=== PATIENT | female | born 1960 | race Caucasian/White ===

== ENCOUNTER → 2017-02-07 | Outpatient (CLI) | payer OTHER | LOC: WI 09:11 | PROVIDERS: ATTEND Specialist | DX: C50.212 Malignant neoplasm of upper-inner quadrant of left female breast (principal) | CPT/HCPCS: 77061; G0206 ==

== ENCOUNTER → 2017-02-10 | Outpatient (CLI) | payer OTHER | LOC: WI 13:25 | PROVIDERS: ATTEND Specialist | DX: Z12.31 Encounter for screening mammogram for malignant neoplasm of breast (principal); C50.212 Malignant neoplasm of upper-inner quadrant of left female breast | CPT/HCPCS: 77063; G0202 ==

== ENCOUNTER 2017-05-01 13:04 | Emergency (ER) | payer OTHER ==
[2017-05-01] MEDS ORDERED: ASPIRIN 81 MG TABLET, CHEWABLE PO ONE (14:26)
[2017-05-01] MEDS ORDERED: PROMETHAZINE HCL 25 MG TABLET PO ONE (14:27)
[2017-05-01] MEDS ORDERED: MORPHINE SULFATE 10 MG/ML INJ IV ONE ×2 (14:28→15:28)
--- NOTE | 2017-05-01 14:33 | ER Document Report ---
ED Medical Screen (RME) - General Chief Complaint: Shoulder Pain Stated Complaint: SHOULDER PAIN Time Seen by Provider: 05/01/17 14:15 Notes: 56 yo female with hx/o left breast cancer, HTN c/o acute onset of burning pain to left shoulder into left neck and left arm since last PM. Pt has shortness of breath, but reports that is not new. she has had some shortness of breath since having 35 rounds of radiation. Pt had normal heart cath last year at [facility]. Pt tearful, very uncomfortable. Hypertensive TRAVEL OUTSIDE OF THE [place] IN LAST 30 DAYS: No - Related Data Allergies/Adverse Reactions: codeine [Codeine] Allergy (Unknown, Verified 05/01/17 13:17) Penicillins Allergy (Unknown, Verified 05/01/17 13:17) Iodinated Contrast- Oral and IV Dye [IV Dye, Iodine Containing] Allergy ( Verified 05/01/17 13:17) Past Medical History - Social History Chew tobacco use (# tins/day): No Frequency of alcohol use: None - Past Medical History Cardiac Medical History: Reports: Hx Hypertension Neurological Medical History: Reports: Hx Migraine Renal/ Medical History: Denies: Hx Peritoneal Dialysis Malignancy Medical History: Reports: Hx Breast Cancer Psychiatric Medical History: Reports: Hx Depression Past Surgical History: Reports: Hx Breast Surgery - L Lumpectomy, Hx Section, Hx Hysterectomy, Hx Oral Surgery - [place] tooth removal, Hx Orthopedic Surgery - Right hand, Hx Tonsillectomy - Immunizations Hx Diphtheria, Pertussis, Tetanus Vaccination: Yes Physical Exam - Vital signs Vitals: Temp Pulse Resp BP Pulse Ox 98.7 F 95 20 148/101 H 97 05/01/17 13:17 05/01/17 13:17 05/01/17 13:17 05/01/17 13:17 05/01/17 13:17 Course - Vital Signs Vital signs: Temp Pulse Resp BP Pulse Ox 98.7 F 95 20 148/101 H 97 05/01/17 13:17 05/01/17 13:17 05/01/17 13:17 05/01/17 13:17 05/01/17 13:17
[2017-05-01] MEDS ORDERED: METHOCARBAMOL INJ/PF 1000 MG/10 ML SDV IV ONE (14:49)
--- NOTE | 2017-05-01 14:49 | ER Document Report ---
ED General - General Mode of Arrival: Wheelchair Information source: Patient TRAVEL OUTSIDE OF THE [place] IN LAST 30 DAYS: No <JOSE E HOGUE - Last Filed: 05/01/17 15:23> <BRITTNI ESPINOSA - Last Filed: 05/01/17 16:59> - General Chief Complaint: Shoulder Pain Stated Complaint: SHOULDER PAIN Time Seen by Provider: 05/01/17 14:15 Notes: Patient is a 56 year old female presenting to the ED for pain in her left shoulder, neck and arm. Patient's symptoms were onset yesterday morning. Patient denies any injury to her left arm. Patient states she was getting ready for her grandchildren to visit but states she hired someone to clean the house. After the patient received morphine she and her do recall the patient doing some heavy lifting several days ago in preparation for the grandchildren. Patient states her pain is burning and goes into her arm pit as well. Patient states she has had this pain before but it was not as intense and was manageable with ibuprofen. Patient has a history of left breast cancer. Patient has had 35 rounds of radiation. Patient has some shortness of breath ever since getting radiation and she states it occurs with activity; patient states her dyspnea is old and there is nothing new about it. Patient had a normal cardiac catheterization last year at [facility]. (JOSE E HOGUE) - Related Data Allergies/Adverse Reactions: codeine [Codeine] Allergy (Unknown, Verified 05/01/17 13:17) Penicillins Allergy (Unknown, Verified 05/01/17 13:17) Iodinated Contrast- Oral and IV Dye [IV Dye, Iodine Containing] Allergy ( Verified 05/01/17 13:17) Past Medical History - General Information source: Patient - Social History Smoking Status: Former Smoker Cigarette use (# per day): No Chew tobacco use (# tins/day): No Frequency of alcohol use: None Family History: None Patient has suicidal ideation: No Patient has homicidal ideation: No - Past Medical History Cardiac Medical History: Reports: Hx Hypertension Neurological Medical History: Reports: Hx Migraine Malignancy Medical History: Reports: Hx Breast Cancer - left Psychiatric Medical History: Reports: Hx Depression Past Surgical History: Reports: Hx Breast Surgery - L Lumpectomy, Hx Section, Hx Hysterectomy, Hx Oral Surgery - [place] tooth removal, Hx Orthopedic Surgery - Right hand, Hx Tonsillectomy - Immunizations Hx Diphtheria, Pertussis, Tetanus Vaccination: Yes <JOSE E HOGUE - Last Filed: 05/01/17 15:23> Review of Systems - Review of Systems Constitutional: No symptoms reported EENT: No symptoms reported Cardiovascular: No symptoms reported, Dyspnea - with activity; old symptom since starting chemotherapy Respiratory: No symptoms reported Gastrointestinal: No symptoms reported Genitourinary: No symptoms reported Female Genitourinary: No symptoms reported Musculoskeletal: See HPI Skin: No symptoms reported Hematologic/Lymphatic: No symptoms reported Neurological/Psychological: No symptoms reported -: Yes All other systems reviewed and negative <JOSE E HOGUE - Last Filed: 05/01/17 15:23> Physical Exam - Vital signs Interpretation: Hypertensive <JOSE E OHGUE - Last Filed: 05/01/17 15:23> <BRITTNI ESPINOSA - Last Filed: 05/01/17 16:59> - Vital signs Vitals: Temp Pulse Resp BP Pulse Ox 98.7 F 95 20 148/101 H 97 05/01/17 13:17 05/01/17 13:17 05/01/17 13:17 05/01/17 13:17 05/01/17 13:17 - Notes Notes: GENERAL: Alert, interacts well, appears uncomfortable. Mild distress. HEAD: Normocephalic, atraumatic. EYES: Appear normal. Pupils equal, round, and reactive to light. ENT: Moist mucus membranes, tongue midline. NECK: Full range of motion. Supple. Trachea midline. LUNGS: Clear to auscultation bilaterally, no wheezes, rales, or rhonchi. No respiratory distress. HEART: Regular rate and rhythm. No murmurs, gallops, or rubs. ABDOMEN: Soft, non-tender. Non-distended. Normal bowel sounds. EXTREMITIES: Moves all 4 extremities spontaneously. Pain and tenderness to palpate the medial scapula musculature, lateral ribs, axillary region and a exquisitely tender long T3, T4, and T5 is exquisitely tender with palpation. Patient is not tender over the trapezius musculature. Patient's tenderness expands over several dermatomes. There is no sensitivity to the skin and no sign of rash or lesions over these areas. NEUROLOGICAL: Alert and oriented x3. Normal speech. No focal neurological deficits. GSC 15. PSYCH: Normal affect, normal mood. SKIN: Warm, dry, normal turgor. No rashes or lesions present. (JOSE E HOGUE) Course - Laboratory Result Diagrams: 05/01/17 14:51 05/01/17 14:51 <JOSE E HOGUE - Last Filed: 05/01/17 15:23> - Laboratory Result Diagrams: 05/01/17 14:51 05/01/17 14:51 - EKG Interpretation by Me EKG shows normal: Sinus rhythm, [place], Intervals, QRS Complexes, ST-T Waves Rate: Normal - 81 Rhythm: NSR When compared to previous EKG there are: No significant change <BRITTNI ESPINOSA - Last Filed: 05/01/17 16:59> - Re-evaluation Re-evalutation: 05/01/17 16:49 Patient states she is feeling much better at this time. Workup is essentially negative other than a reproducible muscular left chest and scapular pain. (BRITTNI ESPINOSA) - Vital Signs Vital signs: Temp Pulse Resp BP Pulse Ox 98.7 F 95 20 148/101 H 97 05/01/17 13:17 05/01/17 13:17 05/01/17 13:17 05/01/17 13:17 05/01/17 13:17 - Laboratory Laboratory results interpreted by me: 05/01/17 14:51 Chloride 108 H ALT 59 H Discharge <JOSE E HOGUE - Last Filed: 05/01/17 15:23> <BRITTNI ESPINOSA - Last Filed: 05/01/17 16:59> - Discharge Clinical Impression: Rib pain on left side Muscle strain of left scapular region Qualifiers: Encounter type: initial encounter Qualified Code(s): S46.912A - Strain of unspecified muscle, fascia and tendon at shoulder and upper arm level, left arm , initial encounter Condition: Stable Disposition: HOME, SELF-CARE Additional Instructions: Muscle Strain: You have PROBABLY strained the left rib and scapular muscles. This often occurs with strenuous exertion, or during an injury that suddenly stretches the muscle. The seriousness of a strain varies. Some strains heal within days, others cause problems for months. X-rays cannot show a muscle strain. X-rays are taken only if symptoms suggest that a fracture could be present. The usual treatment of a muscle strain is rest and ice packs. Sometimes, a sling, splint, or crutches may be necessary to rest the muscle. The muscle can be used again once pain subsides. Severe strains require a special exercise and stretching program to prevent permanent stiffness and disability. Your doctor will advise you if this will be necessary. Call the doctor immediately if pain or swelling becomes severe, or if numbness or discoloration develop. TAKE THE MEDICATIONS PRESCRIBED. REST. MOIST HEAT. FOLLOW UP WITH YOUR DOCTOR IF NOT IMPROVING. RETURN TO THE EMERGENCY ROOM IF ANY NEW OR WORSENING SYMPTOMS. Prescriptions: Cyclobenzaprine HCl [Flexeril 5 mg Tablet] 5 mg PO TID PRN #15 tablet PRN Reason: Oxycodone HCl/Acetaminophen [Percocet 5-325 mg Tablet] 1 - 2 tab PO ASDIR PRN # 15 tablet PRN Reason: Referrals: MARIA ISABEL DE LA TORRE, SONOSCOPE OPERATOR [Primary Care Provider] - Follow up as needed Scribe Attestation: 05/01/17 16:58 I personally performed the services described in the documentation, reviewed and edited the documentation which was dictated to the scribe in my presence, and it accurately records my words and actions. (BRITTNI ESPINOSA) Scribe Documentation - Scribe Written by Nancy:: Nancy Jarvis, 05/01/2017 15:33 acting as scribe for :: Jessika <JOSE E HOGUE - Last Filed: 05/01/17 15:23>
[2017-05-01 15:11] LABS: ABSOLUTE BASOPHILS # (AUTO) 0.1 10^3/uL (0.0-0.2); ABSOLUTE EOSINOPHILS # (AUTO) 0.2 10^3/uL (0.0-0.6); ABSOLUTE LYMPHOCYTES (AUTO) 2.4 10^3/uL (0.5-4.7); ABSOLUTE MONOCYTES (AUTO) 0.5 10^3/uL (0.1-1.4); BASOPHILS % (AUTO) 0.8 % (0-2); EOSINOPHILS % (AUTO) 2.2 % (0-6); HEMATOCRIT 40.1 % (36.0-47.0); HEMOGLOBIN 14.2 g/dL (12.0-15.5); HGB HCT DIFFERENCE 2.5; LYMPHOCYTES % (AUTO) 29.9 % (13-45); MEAN CORPUSCULAR HEMOGLOBIN 32.9 pg (27.0-33.4); MEAN CORPUSCULAR HGB CONC 35.4 g/dL (32.0-36.0); MEAN CORPUSCULAR VOLUME 93 fl (80-97); MONOCYTES % (AUTO) 5.7 % (3-13); RED BLOOD COUNT 4.31 10^6/uL (3.72-5.28); RED CELL DISTRIBUTION WIDTH 13.2 % (11.5-14.0); SEGMENTED NEUTROPHILS % (AUTO) 61.4 % (42-78); WHITE BLOOD COUNT 8.2 10^3/uL (4.0-10.5)
[2017-05-01 15:22] LABS: ALANINE AMINOTRANSFERASE 59 U/L (9-52); ALBUMIN 4.3 g/dL (3.5-5.0); ALKALINE PHOSPHATASE 83 U/L (38-126); ANION GAP 10 (5-19); ASPARTATE AMINO TRANSFERASE 34 U/L (14-36); BILIRUBIN,DIRECT 0.3 mg/dL (0.0-0.4); BILIRUBIN,TOTAL 0.6 mg/dL (0.2-1.3); BLOOD UREA NITROGEN 15 mg/dL (7-20); CARBON DIOXIDE 22 mmol/L (22-30); CHLORIDE 108 mmol/L (98-107); CREATINE KINASE 48 U/L (30-135); CREATININE RESULT 0.68 mg/dL (0.52-1.25); GLUCOSE 85 mg/dL (75-110); POTASSIUM 4.1 mmol/L (3.6-5.0); SODIUM 140.1 mmol/L (137-145); TOTAL PROTEIN 7.6 g/dL (6.3-8.2)
[2017-05-01] MEDS ORDERED: KETOROLAC TROMETHAMINE INJ/PF 30 MG/1 ML SDV IV ONE (15:28)
[2017-05-01 15:40] LABS: CREATINE KINASE MB 0.62 ng/mL (<4.55)
[2017-05-01 15:41] LABS: TROPONIN I < 0.012 ng/mL
--- NOTE | 2017-05-01 16:24 | RADIOLOGY REPORT (SQ) ---
EXAM DESCRIPTION: CHEST PA/LAT COMPLETED DATE/TIME: 05/01/2017 4:13 pm REASON FOR STUDY: left chest pain COMPARISON: 04/06/2016 EXAM PARAMETERS: NUMBER OF VIEWS: two views TECHNIQUE: Digital Frontal and Lateral radiographic views of the chest acquired. RADIATION DOSE: NA LIMITATIONS: none FINDINGS: LUNGS AND PLEURA: No opacities, masses or pneumothorax. No pleural effusion. MEDIASTINUM AND HILAR STRUCTURES: No masses or contour abnormalities. HEART AND VASCULAR STRUCTURES: Heart normal size. No evidence for failure. BONES: No acute findings. HARDWARE: None in the chest. OTHER: No other significant finding. IMPRESSION: NO SIGNIFICANT RADIOGRAPHIC FINDING IN THE CHEST. TECHNICAL DOCUMENTATION: JOB ID: [id number] [employer]- All Rights Reserved
[2017-05-01 17:33] VITALS: BP 120/91
--- NOTE | 2017-05-02 03:38 | EKG REPORT ---
SEVERITY:- NORMAL ECG - SINUS RHYTHM : Confirmed by: Diane Pace MD 02-May-2017 03:37:44
== END 2017-05-01 17:34 | disposition home or self-care (01) ==
LOC: ER 13:04
DX: S46.912A Strain of unspecified muscle, fascia and tendon at shoulder and upper arm level, left arm, initial encounter (principal); X58.XXXA Exposure to other specified factors, initial encounter; M89.8X1 Other specified disorders of bone, shoulder; M54.2 Cervicalgia; R07.81 Pleurodynia; M79.602 Pain in left arm; I10 Essential (primary) hypertension; R06.02 Shortness of breath; Z85.3 Personal history of malignant neoplasm of breast; Z92.3 Personal history of irradiation; Z88.5 Allergy status to narcotic agent; Z88.0 Allergy status to penicillin; Z91.041 Radiographic dye allergy status; Z87.891 Personal history of nicotine dependence
CPT/HCPCS: 93005; 96376; 99284; 96374; 96375; 36415; 82553; 82550; 85025; 80053; 84484; 71020; 93010; J2800; J1885; J2270

== ENCOUNTER → 2017-10-24 | Outpatient (CLI) | payer OTHER ==
[2017-10-24 14:50] LABS: ABSOLUTE EOSINOPHILS # (AUTO) 0.2 10^3/uL (0.0-0.6); ABSOLUTE LYMPHOCYTES (AUTO) 3.2 10^3/uL (0.5-4.7); ABSOLUTE MONOCYTES (AUTO) 0.5 10^3/uL (0.1-1.4); ABSOLUTE NEUT (AUTO) 4.9 10^3/uL (1.7-8.2); BASOPHILS % (AUTO) 0.5 % (0-2); EOSINOPHILS % (AUTO) 2.1 % (0-6); HEMATOCRIT 44.3 % (36.0-47.0); HEMOGLOBIN 15.5 g/dL (12.0-15.5); LYMPHOCYTES % (AUTO) 35.6 % (13-45); MEAN CORPUSCULAR HEMOGLOBIN 32.7 pg (27.0-33.4); MEAN CORPUSCULAR HGB CONC 34.9 g/dL (32.0-36.0); MEAN CORPUSCULAR VOLUME 94 fl (80-97); MONOCYTES % (AUTO) 6.2 % (3-13); PLATELET COUNT 223 10^3/uL (150-450); RED BLOOD COUNT 4.73 10^6/uL (3.72-5.28); RED CELL DISTRIBUTION WIDTH 12.6 % (11.5-14.0); SEGMENTED NEUTROPHILS % (AUTO) 55.6 % (42-78); TOTAL CELLS COUNTED % (AUTO) 100 %; WHITE BLOOD COUNT 8.9 10^3/uL (4.0-10.5)
[2017-10-24 15:18] LABS: ALANINE AMINOTRANSFERASE 67 U/L (9-52); ALBUMIN 4.8 g/dL (3.5-5.0); ALKALINE PHOSPHATASE 65 U/L (38-126); AMYLASE 90 U/L (30-110); ANION GAP 9 (5-19); ASPARTATE AMINO TRANSFERASE 44 U/L (14-36); BILIRUBIN,DIRECT 0.3 mg/dL (0.0-0.4); BILIRUBIN,TOTAL 0.8 mg/dL (0.2-1.3); BLOOD UREA NITROGEN 12 mg/dL (7-20); CALCIUM 10.7 mg/dL (8.4-10.2); CARBON DIOXIDE 24 mmol/L (22-30); CHLORIDE 104 mmol/L (98-107); GLUCOSE 96 mg/dL (75-110); LIPASE 99.4 U/L (23-300); POTASSIUM 4.6 mmol/L (3.6-5.0); SODIUM 137.1 mmol/L (137-145); TOTAL PROTEIN 7.5 g/dL (6.3-8.2)
[2017-10-24 15:19] LABS: C-REACTIVE PROTEIN < 5.0 mg/L (<10.0)
[2017-10-24 15:43] LABS: ERYTHROCYTE SEDIMENTATION RATE 14 mm/hr (0-30)
--- NOTE | 2017-10-24 17:30 | RADIOLOGY REPORT (SQ) ---
EXAM DESCRIPTION: CT ABD/PELVIS ORAL ONLY COMPLETED DATE/TIME: 10/24/2017 5:15 pm REASON FOR STUDY: UNSPEC ABD PAIN (R10.9) R10.9 UNSPECIFIED ABDOMINAL PAIN COMPARISON: CT angio chest 09/23/2015 CT abdomen pelvis 09/19/2016 TECHNIQUE: CT scan of the abdomen and pelvis performed without intravenous contrast. Patient gives a history of IV contrast allergy in the 90s and states she has had IV contrast with steroid prep in t he past without difficulty. No IV contrast or steroid prep was given today. Patient drank oral contrast. Images reviewed with lung, soft tissue, and bone windows. Reconstructed coronal and sagittal MPR imag es reviewed. All images stored on PACS. All CT scanners at this facility use dose modulation, iterative reconstruction, and/or weight based d osing when appropriate to reduce radiation dose to as low as reasonably achievable (ALARA). [facility]: Dose Right [facility]: CareDose [facility]: Dose Right [facility]: Teradose 4D [facility]: Smart Technologies RADIATION DOSE: CT Rad equipment meets quality standard of care and radiation dose reduction techniq ues were employed. CTDIvol: 16.4 mGy. DLP: 916 mGy-cm.mGy. LIMITATIONS: None. FINDINGS: LOWER CHEST: No significant findings. No nodules or infiltrates. NON-CONTRASTED LIVER, SPLEEN, ADRENALS: Diffuse low attenuation throughout the liver from fatty infil tration. No liver masses. Benign peripherally calcified 4.2 cm splenic cyst along the subdiaphragma tic surface unchanged since studies from 2015. PANCREAS: No masses. No peripancreatic inflammatory changes. GALLBLADDER: No identified stones by CT criteria. No inflammatory changes to suggest cholecystitis. RIGHT KIDNEY AND URETER: No suspicious masses. Assessment limited by lack of IV contrast. No signif icant calcifications. No hydronephrosis or hydroureter. LEFT KIDNEY AND URETER: No suspicious masses. Assessment limited by lack of IV contrast. No signifi cant calcifications. No hydronephrosis or hydroureter. AORTA AND RETROPERITONEUM: No aneurysm. No retroperitoneal masses or adenopathy. BOWEL AND PERITONEAL CAVITY: No obvious masses or inflammatory changes. No free fluid. Oral contrast throughout the stomach small bowel and right colon without evidence of bowel obstruction. Moderate stool in the descending colon and rectosigmoid. No CT findings worrisome for acute diverticulitis. APPENDIX: Normal. PELVIS, BLADDER, AND ABDOMINAL WALL:No abnormal masses. No free fluid. Bladder normal. Post hysterec lashaun BONES: No significant findings. OTHER: No other significant finding. IMPRESSION: NO SIGNIFICANT OR ACUTE PROCESS IN THE ABDOMEN OR PELVIS. COMMENT: Quality ID # [id number]: Final reports with documentation of one or more dose reduction techniques (e.g., Automated exposure control, adjustment of the mA and/or kV according to patient size, use of iterative reconstruction technique) TECHNICAL DOCUMENTATION: JOB ID: [id number] [employer]- All Rights Reserved
== END ==
LOC: RAD 14:14
PROVIDERS: ATTEND Family Medicine
DX: R10.9 Unspecified abdominal pain (principal)
CPT/HCPCS: 36415; 74176; 80053; 82150; 83690; 85025; 85652; 86140

== ENCOUNTER → 2018-02-14 | Outpatient (CLI) | payer OTHER ==
--- NOTE | 2018-02-14 09:37 | WOMENS IMAGING REPORT ---
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 TECHNIQUE: Dual-Energy X-ray Absorptiometry (DEXA) of the AP Spine and Hip. LIMITATIONS: None. FINDINGS: LUMBAR SPINE: The bone mineral density (BMD) measured from L1-L4 in the AP projection correlates with a T-score of -0.2, which is normal as defined by the World Health Organization. HIP: The bone mineral density (BMD) measured in the left hip correlates with a T-score of -1.2, which is o steopenia as defined by the World Health Organization. IMPRESSION: 1. LUMBAR SPINE: Normal 2. HIP: Osteopenia COMMENT: The World Health Organization defines low BMD as follows: T-score: Normal: Greater than -1.0 Osteopenia: Between -1.0 and -2.5 Osteoporosis: Less than -2.5 without fractures Established osteoporosis: Less than -2.5 with fractures In general, you may wish to consider: Diagnosis Treatment Follow-up DEXA Normal BMD Prevention 2-3 years Osteopenia Prevention/Therapy 1-2 years Osteoporosis Therapy Yearly TECHNICAL DOCUMENTATION: JOB ID: [id number] [employer]- All Rights Reserved Reading location - IP/workstation name: [email or web address]
--- NOTE | 2018-02-15 08:13 | WOMENS IMAGING REPORT ---
EXAM DESCRIPTION: 3D DX MAMMO BILAT COMPLETED DATE/TIME: 02/14/2018 8:53 am REASON FOR STUDY: BREAST CANCER C50.212 MALIG NEOPLASM OF UPPER-INNER QUADRANT OF LEFT FEMAL M81.0 AGE-RELATED OSTEOPOROSIS W/O CURRENT PATHOLOGICAL FRAC COMPARISON: Multiple since 2008 TECHNIQUE: Standard craniocaudal and mediolateral oblique views of each breast recorded using digita l acquisition and breast tomosynthesis. Additional left breast 90 mediolateral view LIMITATIONS: None. FINDINGS: RIGHT BREAST MASSES: No suspicious masses. CALCIFICATIONS: No new or suspicious calcifications. ARCHITECTURAL DISTORTION: None. DEVELOPING DENSITY: None. ASYMMETRY: None noted. OTHER: No other significant findings. LEFT BREAST MASSES: No suspicious masses. CALCIFICATIONS: No new or suspicious calcifications. ARCHITECTURAL DISTORTION: Postoperative changes left breast lower inner quadrant are stable DEVELOPING DENSITY: None. ASYMMETRY: None noted. OTHER: No other significant finding. Read with the assistance of CAD: .[facility] - R2 Cenova Version 1.3 .[facility] - R2 Cenova Version 1.3 .[facility] - R2 Cenova Version 2.4 .[facility] R2 Cenova Version 2.4 .[facility] - R2 Electronic Assembler Version 9.2 IMPRESSION: No mammographic/ tomosynthesis evidence for malignancy. Post therapeutic changes left b reast lower inner quadrant BREAST DENSITY: b. There are scattered areas of fibroglandular density. BIRAD: 2 Benign findings. RECOMMENDATION: RECOMMENDED FOLLOW UP: Please continue yearly bilateral screening tomosynthesis in 2018 SPECIFIC INTERVENTION/IMAGING/CONSULTATION RECOMMENDED:No additional intervention/ imaging/consultati on needed at this time. COMMUNICATION:Patient notified by letter COMMENT: The patient has been notified of the results by letter per SA requirements. Additional no tification policies are in place for contacting patient with suspicious or incomplete findings. Quality ID #[id number]: The [employer] recommends an annual screening mammogram for women aged 40 years or over. This facility utilizes a reminder system to ensure that all patients receive reminder letters, and/or direct phone calls for appointments. This includes reminders for routine scr eening mammograms, diagnostic mammograms, or other Breast Imaging Interventions when appropriate. Th is patient will be placed in the appropriate reminder system. The [employer] (ACR) has developed recommendations for screening MRI of the breast s in certain patient populations, to be used in conjunction with mammography. Breast MRI surveillanc e may be appropriate for women with more than 20% lifetime risk of developing breast cancer as deter mined by genetic testing, significant family history of the disease, or history of mantle radiation f or Hodgkins Disease. ACR Practice Guidelines 2008. DBT Technology DBT is a type of tomographic mammography. With conventional mammography, overlapping breast tissue ma y make lesions difficult to detect, even with good compression. DBT uses an x-ray tube that rotates a round the breast, taking images at different angles. These images are then combined to create thin sl ices of the breast that the radiologist can view as a 3D reconstruction. The [employer] unit can perform full-field digital mammograms (2D imaging); or DBT (3D imaging); or both, in a combination mode that quickly performs both the mammogram and the tomosynthesis scan while the breast is still compressed. PQRS 6045F: Fluoroscopic imaging is not utilized for breast tomosynthesis. TECHNICAL DOCUMENTATION: FINDING NUMBER: (1) ASSESSMENT: (1) JOB ID: [id number] [employer]- All Rights Reserved Reading location - IP/workstation name: [email or web address]
== END ==
LOC: WI 08:10
PROVIDERS: ATTEND Internal Medicine Hematology & Oncology
DX: C50.212 Malignant neoplasm of upper-inner quadrant of left female breast (principal); M81.0 Age-related osteoporosis without current pathological fracture
CPT/HCPCS: 77066; 77080; G0279; 77062

== ENCOUNTER → 2018-04-06 | Outpatient (CLI) | payer OTHER ==
--- NOTE | 2018-04-06 11:55 | RADIOLOGY REPORT (SQ) ---
EXAM DESCRIPTION: U/S ABDOMEN LIMITED W/O DOP COMPLETED DATE/TIME: 04/06/2018 11:08 am REASON FOR STUDY: RIGHT UPPER QUADRANT PAIN R10.11 RIGHT UPPER QUADRANT PAIN COMPARISON: None. TECHNIQUE: Dynamic and static grayscale images acquired of the abdomen and recorded on PACS. Additio nal selected color Doppler and spectral images recorded. LIMITATIONS: Limited visualization due to overlying bowel gas. FINDINGS: PANCREAS: Not visualized. LIVER: No masses. Echotexture normal. LIVER VASCULATURE: Normal directional flow of the main portal vein and hepatic veins. GALLBLADDER: No stones. Normal wall thickness. No pericholecystic fluid. ULTRASOUND-DETECTED BARRAZA'S SIGN: Negative. INTRAHEPATIC DUCTS AND COMMON DUCT: CBD and intrahepatic ducts normal caliber. No filling defects. INFERIOR VENA CAVA: Normal flow. AORTA: Proximal aorta not visualized. No aneurysm. RIGHT KIDNEY: Normal size. Normal echogenicity. No solid or suspicious masses. No hydronephrosis. No calcifications. PERITONEAL AND RIGHT PLEURAL SPACE: No ascites or effusions. OTHER: No other significant findings. IMPRESSION: Negative right upper quadrant ultrasound. TECHNICAL DOCUMENTATION: JOB ID: [id number] [employer]- All Rights Reserved Reading location - IP/workstation name: [email or web address]
== END ==
LOC: RAD 10:35
PROVIDERS: ATTEND Internal Medicine Gastroenterology
DX: R10.11 Right upper quadrant pain (principal)
CPT/HCPCS: 76705

== ENCOUNTER → 2018-04-11 | Outpatient (CLI) | payer OTHER ==
--- NOTE | 2018-04-11 14:28 | RADIOLOGY REPORT (SQ) ---
EXAM DESCRIPTION: NM HIDA SCAN WITH CCK COMPLETED DATE/TIME: 04/11/2018 10:37 am REASON FOR STUDY: RIGHT UPPER QUADRANT PAIN, NAUSEA R10.11 RIGHT UPPER QUADRANT PAIN COMPARISON: Abdominal ultrasound 04/06/2018 CT abdomen pelvis 10/24/2017 RADIONUCLIDE AND DOSE: DOSAGE RADIONUCLIDE: 5.25 millicuries Tc99m HDP DOSAGE CCK: 1.6 micrograms. DOSAGE MORPHINE: Not required. The route of agent administration: Intravenous TECHNIQUE: Serial imaging right upper quadrant up to 60 minutes following injection of radionuclide. CCK injected after gallbladder visualized. LIMITATIONS: None. FINDINGS: LIVER: Normal uptake which clears from the liver by 70 minutes. INTRAHEPATIC BILE DUCTS: Normal visualization COMMON BILE DUCT: Normal visualization GALLBLADDER: Normal visualization. Calculated ejection fraction of 15%. Normal range is greater th an 35%. PHYSICAL RESPONSE: Patients presenting complaint was reproduced. OTHER: No other significant finding. IMPRESSION: No scintigraphic evidence of cystic duct or common duct obstruction. Depressed gallbladder ejection fraction. IV CCK reproduced the patient's symptoms TECHNICAL DOCUMENTATION: JOB ID: [id number]- All Rights Reserved Reading location - IP/workstation name: [email or web address]
== END ==
LOC: RAD 07:37
PROVIDERS: ATTEND Internal Medicine Gastroenterology
DX: R10.11 Right upper quadrant pain (principal); R11.0 Nausea
CPT/HCPCS: 78227; J2805; A9537; Q9969

== ENCOUNTER 2018-05-23 08:18 | Emergency (ER) | payer OTHER ==
[2018-05-23] MEDS ORDERED: ONDANSETRON HCL INJ/PF 4 MG/2 ML SDV IV ONE (09:07)
[2018-05-23] MEDS ORDERED: KETOROLAC TROMETHAMINE INJ/PF 30 MG/1 ML SDV IV ONE (09:07)
--- NOTE | 2018-05-23 09:15 | ER Document Report ---
ED General - General Chief Complaint: Abdominal Pain Stated Complaint: STOMACH PAIN Time Seen by Provider: 05/23/18 08:49 Mode of Arrival: Ambulatory Information source: Patient Notes: Patient presents to the emergency department with complaints of severe abdominal pain that woke her up at approximately 2:00 this morning. Patient reports she has been having this pain for the past 2 months. She reports she has had a gallbladder ultrasound and HIDA scan completed she reports she has been evaluated by her primary care provider and sent to Dr. Paris for possible Aidee. Patient reports that Dr. Paris said that her gallbladder does not need to come out at this time. She denies change in diet. Denies trauma. Reports ever since her breast cancer, chemotherapy she has had issues with her bowel movements. She reports that she thought maybe she was constipated so she took multiple stool softeners, miralax, Dulcolax and even give herself an enema. She reports last bowel movement was this morning very little formed and soft. She reports some nausea but denies vomiting. Also reports she is unable to pass gas. TRAVEL OUTSIDE OF THE [place] IN LAST 30 DAYS: No - HPI Onset: This morning - worse pain this morning but has had pain for 2 months. Onset/Duration: Persistent Quality of pain: Cramping Severity: Severe Pain Level: 5 Associated symptoms: Nausea Exacerbated by: Denies Relieved by: Denies Similar symptoms previously: Yes Recently seen / treated by doctor: Yes - Related Data Allergies/Adverse Reactions: codeine [Codeine] Allergy (Unknown, Verified 05/23/18 09:43) Penicillins Allergy (Unknown, Verified 05/23/18 09:43) Past Medical History - General Information source: Patient - Social History Smoking Status: Unknown if Ever Smoked Cigarette use (# per day): No Frequency of alcohol use: None Drug Abuse: None Lives with: Family Family History: None Patient has suicidal ideation: No Patient has homicidal ideation: No - Past Medical History Cardiac Medical History: Reports: Hx Hypertension Neurological Medical History: Reports: Hx Migraine Renal/ Medical History: Denies: Hx Peritoneal Dialysis Malignancy Medical History: Reports: Hx Breast Cancer - left Psychiatric Medical History: Reports: Hx Depression Past Surgical History: Reports: Hx Breast Surgery - L Lumpectomy, Hx Section, Hx Hysterectomy, Hx Oral Surgery - [place] tooth removal, Hx Orthopedic Surgery - Right hand, Hx Tonsillectomy - Immunizations Hx Diphtheria, Pertussis, Tetanus Vaccination: Yes Review of Systems - Review of Systems Gastrointestinal: Abdominal pain, Nausea Genitourinary: Dysuria Physical Exam - Vital signs Vitals: Temp Pulse Resp BP Pulse Ox 97.8 F 82 18 129/96 H 99 05/23/18 08:22 05/23/18 08:22 05/23/18 08:22 05/23/18 08:22 05/23/18 08:22 - General General appearance: Alert, Anxious In distress: Mild - HEENT Head: Normocephalic, Atraumatic Eyes: Normal Mouth/Lips: Normal Mucous membranes: Normal - Respiratory Respiratory status: No respiratory distress Chest status: Nontender Breath sounds: Normal Chest palpation: Normal - Cardiovascular Rhythm: Regular Heart sounds: Normal auscultation Murmur: No - Abdominal Inspection: Normal Distension: No distension Bowel sounds: Normal Tenderness: Tender - generalized, more in the RUQ,Epigastric area Organomegaly: No organomegaly - Back Back: Normal - Extremities General upper extremity: Normal ROM General lower extremity: Normal ROM - Neurological Neuro grossly intact: Yes Cognition: Normal Orientation: AAOx4 Marisa Coma Scale Eye Opening: Spontaneous Marisa Coma Scale Verbal: Oriented [place] Coma Scale Motor: Obeys Commands Marisa Coma Scale Total: 15 Speech: Normal Motor strength normal: LUE, RUE, LLE, RLE Sensory: Normal - Psychological Associated symptoms: Normal affect, Normal mood - Skin Skin Temperature: Warm Skin Moisture: Dry Skin Color: Normal Course - Re-evaluation Re-evalutation: 05/23/18 10:47 Patient reports Toradol did not help so morphine ordered. Patient reports she has had morphine without problems in the past. 05/23/18 13:[address] labs [address] CT is negative. Patient resting quietly. Instructed to updated on all labs and CT. Patient instructed to follow-up with her primary care provider Dr. Almaraz on the as scheduled. Also instructed to return to the emergency department for any concerns worsening abdominal pain. - Vital Signs Vital signs: Temp Pulse Resp BP Pulse Ox 98.7 F 82 16 125/86 H 100 05/23/18 13:02 05/23/18 08:22 05/23/18 13:02 05/23/18 13:40 05/23/18 13:40 - Laboratory Result Diagrams: 05/23/18 09:25 05/23/18 10:45 - Diagnostic Test Radiology reviewed: Image reviewed, Reports reviewed Discharge - Discharge Clinical Impression: Abdominal pain Qualifiers: Abdominal location: generalized Qualified Code(s): R10.84 - Generalized abdominal pain Condition: Stable Disposition: HOME, SELF-CARE Instructions: Abdominal Pain ([facility]) Additional Instructions: *You have been evaluated for abdominal pain *Follow up with your primary care provider as scheduled June 01 *Follow up with GI within one week *Return to ED for worsening condition, changes, needs *Return to ED if not better in 24 hours Referrals: FCO WILLAMS MD [ACTIVE STAFF] - Follow up in 3-5 days
[2018-05-23 09:39] LABS: ABSOLUTE BASOPHILS # (AUTO) 0.1 10^3/uL (0.0-0.2); ABSOLUTE EOSINOPHILS # (AUTO) 0.1 10^3/uL (0.0-0.6); ABSOLUTE LYMPHOCYTES (AUTO) 2.3 10^3/uL (0.5-4.7); ABSOLUTE MONOCYTES (AUTO) 0.4 10^3/uL (0.1-1.4); ABSOLUTE NEUT (AUTO) 3.4 10^3/uL (1.7-8.2); BASOPHILS % (AUTO) 0.8 % (0-2); HEMATOCRIT 43.5 % (36.0-47.0); LYMPHOCYTES % (AUTO) 37.1 % (13-45); MEAN CORPUSCULAR HGB CONC 34.5 g/dL (32.0-36.0); MEAN CORPUSCULAR VOLUME 96 fl (80-97); MONOCYTES % (AUTO) 6.1 % (3-13); PLATELET COUNT 239 10^3/uL (150-450); RED BLOOD COUNT 4.55 10^6/uL (3.72-5.28); TOTAL CELLS COUNTED % (AUTO) 100 %; WHITE BLOOD COUNT 6.3 10^3/uL (4.0-10.5)
[2018-05-23 10:26] LABS: APPEARANCE,URINE CLEAR; BILIRUBIN,URINE NEGATIVE (NEGATIVE); COLOR,URINE STRAW; GLUCOSE, URINE NEGATIVE (NEGATIVE); KETONES,URINE NEGATIVE (NEGATIVE); LEUKOCYTE ESTERASE,URINE NEGATIVE (NEGATIVE); NITRITE,URINE NEGATIVE (NEGATIVE); PROTEIN,URINE NEGATIVE (NEGATIVE); UROBILINOGEN,URINE NEGATIVE mg/dL (<2.0)
[2018-05-23] MEDS ORDERED: MORPHINE SULFATE 10 MG/ML INJ IV ONE (10:36)
[2018-05-23 11:30] LABS: ALANINE AMINOTRANSFERASE 30 U/L (9-52); ALBUMIN 4.3 g/dL (3.5-5.0); ALKALINE PHOSPHATASE 66 U/L (38-126); ANION GAP 13 (5-19); ASPARTATE AMINO TRANSFERASE 21 U/L (14-36); BILIRUBIN,DIRECT 0.2 mg/dL (0.0-0.4); BILIRUBIN,TOTAL 0.6 mg/dL (0.2-1.3); BLOOD UREA NITROGEN 16 mg/dL (7-20); CALCIUM 9.8 mg/dL (8.4-10.2); CARBON DIOXIDE 25 mmol/L (22-30); CHLORIDE 104 mmol/L (98-107); GLUCOSE 97 mg/dL (75-110); LIPASE 216.6 U/L (23-300); POTASSIUM 4.8 mmol/L (3.6-5.0); TOTAL PROTEIN 7.1 g/dL (6.3-8.2)
--- NOTE | 2018-05-23 13:33 | RADIOLOGY REPORT (SQ) ---
EXAM DESCRIPTION: CT ABD/PELVIS WITH IV ORAL COMPLETED DATE/TIME: 05/23/2018 1:23 pm REASON FOR STUDY: abdominal pain COMPARISON: 10/24/2017. TECHNIQUE: CT scan of the abdomen and pelvis performed using helical scanning technique with dynamic intravenous contrast injection. No oral contrast. Images reviewed with lung, soft tissue, and bone windows. Reconstructed coronal and sagittal MPR images reviewed. Delayed images for evaluation of the urinary system also acquired. All images stored on PACS. All CT scanners at this facility use dose modulation, iterative reconstruction, and/or weight based d osing when appropriate to reduce radiation dose to as low as reasonably achievable (ALARA). [facility]: Dose Right [facility]: CareDose [facility]: Dose Right [facility]: Teradose 4D [facility]: Mobile Posse CONTRAST TYPE AND DOSE: contrast/concentration: Isovue 350.00 mg/ml; Total Contrast Delivered: 95.0 ml; Total Saline Delivered: 70.0 ml RENAL FUNCTION: Creatinine 0.75 RADIATION DOSE: CT Rad equipment meets quality standard of care and radiation dose reduction techniq ues were employed. CTDIvol: 11.0 - 15.5 mGy. DLP: 1493 mGy-cm.. LIMITATIONS: None. FINDINGS: LOWER CHEST: No significant findings. No nodules or infiltrates. LIVER: Normal size. No masses. No dilated ducts. SPLEEN: Densely calcified splenic cyst, stable. PANCREAS: No masses. No significant calcifications. No adjacent inflammation or peripancreatic fluid collections. Pancreatic duct not dilated. GALLBLADDER: No identified stones by CT criteria. No inflammatory changes to suggest cholecystitis. ADRENAL GLANDS: No significant masses or asymmetry. RIGHT KIDNEY AND URETER: No solid masses. No significant calcification. No hydronephrosis or hydroure ter. LEFT KIDNEY AND URETER: No solid masses. No significant calcification. No hydronephrosis or hydrouret er. AORTA AND VESSELS: No aneurysm. No dissection. Renal arteries, SMA, celiac without stenosis. RETROPERITONEUM: No retroperitoneal adenopathy, hemorrhage or masses. BOWEL AND PERITONEAL CAVITY: No masses or inflammatory changes. No free fluid or peritoneal masses. APPENDIX: Normal. PELVIS: No mass. No free fluid. Normal bladder. ABDOMINAL WALL: No masses. No hernias. BONES: No significant or acute findings. OTHER: No other significant finding. IMPRESSION: 1. No acute or suspicious abdominopelvic abnormality. TECHNICAL DOCUMENTATION: JOB ID: [id number] Quality ID # [id number]: Final reports with documentation of one or more dose reduction techniques (e.g., Au tomated exposure control, adjustment of the mA and/or kV according to patient size, use of iterative reconstruction technique) 2010 [employer]- All Rights Reserved Reading location - IP/workstation name: [email or web address]
[2018-05-23 13:48] VITALS: BP 125/86
== END 2018-05-23 13:48 | disposition home or self-care (01) ==
LOC: ER 08:18
DX: R10.84 Generalized abdominal pain (principal)
CPT/HCPCS: 99284; 96374; 96375; 36415; 83690; 85025; 80053; 81001; 74177; J1885; J2270; J2405

== ENCOUNTER → 2018-11-28 | Outpatient (CLI) | payer OTHER ==
--- NOTE | 2018-11-28 14:36 | WOMENS IMAGING REPORT ---
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 Additional compression magnification views of the left breast lumpectomy site LIMITATIONS: None. FINDINGS: RIGHT BREAST MASSES: No suspicious masses. CALCIFICATIONS: No new or suspicious calcifications. ARCHITECTURAL DISTORTION: None. DEVELOPING DENSITY: None. ASYMMETRY: None noted. OTHER: No other significant findings. LEFT BREAST MASSES: No suspicious masses. CALCIFICATIONS: No new or suspicious calcifications. ARCHITECTURAL DISTORTION: Postoperative changes in the lower inner quadrant left breast, stable DEVELOPING DENSITY: None. ASYMMETRY: None noted. OTHER: No other significant finding. Read with the assistance of CAD: .[facility] - R2 Cenova Version 1.3 .[facility] - R2 Cenova Version 2.1 .[facility] - R2 Cenova Version 2.4 .[facility] [place] R2 Cenova Version 2.4 .[facility] - R2 [employer] Scientist Version 9.2 IMPRESSION: No mammographic/ tomosynthesis evidence for malignancy bilaterally. BREAST DENSITY: b. There are scattered areas of fibroglandular density. BIRAD: 1 Negative. RECOMMENDATION: RECOMMENDED FOLLOW UP: Please continue yearly bilateral tomosynthesis SPECIFIC INTERVENTION/IMAGING/CONSULTATION RECOMMENDED:No additional intervention/ imaging/consultati on needed at this time. COMMUNICATION:The negative/benign results were communicated to the patient. COMMENT: The patient has been notified of the results by letter per SA requirements. Additional no tification policies are in place for contacting patient with suspicious or incomplete findings. Quality ID #[id number]: The [employer] recommends an annual screening mammogram for women aged 40 years or over. This facility utilizes a reminder system to ensure that all patients receive reminder letters, and/or direct phone calls for appointments. This includes reminders for routine scr eening mammograms, diagnostic mammograms, or other Breast Imaging Interventions when appropriate. Th is patient will be placed in the appropriate reminder system. The [employer] (ACR) has developed recommendations for screening MRI of the breast s in certain patient populations, to be used in conjunction with mammography. Breast MRI surveillanc e may be appropriate for women with more than 20% lifetime risk of developing breast cancer as deter mined by genetic testing, significant family history of the disease, or history of mantle radiation f or Hodgkins Disease. ACR Practice Guidelines 2008. DBT Technology DBT is a type of tomographic mammography. With conventional mammography, overlapping breast tissue ma y make lesions difficult to detect, even with good compression. DBT uses an x-ray tube that rotates a round the breast, taking images at different angles. These images are then combined to create thin sl ices of the breast that the radiologist can view as a 3D reconstruction. The Hara unit can perform full-field digital mammograms (2D imaging); or DBT (3D imaging); or both, in a combination mode that quickly performs both the mammogram and the tomosynthesis scan while the breast is still compressed. PQRS 6045F: Fluoroscopic imaging is not utilized for breast tomosynthesis. TECHNICAL DOCUMENTATION: FINDING NUMBER: (1) ASSESSMENT: (1) JOB ID: [id number] [employer]- All Rights Reserved Reading location - IP/workstation name: [email or web address]
== END ==
LOC: WI 08:04
PROVIDERS: ATTEND Internal Medicine Hematology & Oncology
DX: C50.212 Malignant neoplasm of upper-inner quadrant of left female breast (principal)
CPT/HCPCS: 77066; G0279; 77062

== ENCOUNTER 2018-12-07 08:33 | Emergency (ER) | payer OTHER ==
[2018-12-07 09:49] LABS: ABSOLUTE EOSINOPHILS # (AUTO) 0.1 10^3/uL (0.0-0.6); ABSOLUTE LYMPHOCYTES (AUTO) 2.9 10^3/uL (0.5-4.7); ABSOLUTE MONOCYTES (AUTO) 0.5 10^3/uL (0.1-1.4); APPEARANCE,URINE SLIGHTLY-CLOUDY; BASOPHILS % (AUTO) 0.5 % (0-2); BILIRUBIN,URINE NEGATIVE (NEGATIVE); COLOR,URINE YELLOW; EOSINOPHILS % (AUTO) 1.7 % (0-6); GLUCOSE, URINE NEGATIVE (NEGATIVE); HEMATOCRIT 42.1 % (36.0-47.0); HEMOGLOBIN 14.9 g/dL (12.0-15.5); KETONES,URINE NEGATIVE (NEGATIVE); LEUKOCYTE ESTERASE,URINE NEGATIVE (NEGATIVE); LYMPHOCYTES % (AUTO) 33.8 % (13-45); MEAN CORPUSCULAR HEMOGLOBIN 33.3 pg (27.0-33.4); MEAN CORPUSCULAR HGB CONC 35.4 g/dL (32.0-36.0); MEAN CORPUSCULAR VOLUME 94 fl (80-97); MONOCYTES % (AUTO) 5.8 % (3-13); NITRITE,URINE NEGATIVE (NEGATIVE); PLATELET COUNT 217 10^3/uL (150-450); PROTEIN,URINE NEGATIVE (NEGATIVE); RED BLOOD COUNT 4.48 10^6/uL (3.72-5.28); RED CELL DISTRIBUTION WIDTH 12.6 % (11.5-14.0); SEGMENTED NEUTROPHILS % (AUTO) 58.2 % (42-78); TOTAL CELLS COUNTED % (AUTO) 100 %; URINE SPECIFIC GRAVITY 1.018; UROBILINOGEN,URINE NEGATIVE mg/dL (<2.0); WHITE BLOOD COUNT 8.5 10^3/uL (4.0-10.5)
[2018-12-07 10:15] LABS: ALANINE AMINOTRANSFERASE 26 U/L (9-52); ALBUMIN 4.5 g/dL (3.5-5.0); ALKALINE PHOSPHATASE 97 U/L (38-126); ANION GAP 8 (5-19); ASPARTATE AMINO TRANSFERASE 24 U/L (14-36); BILIRUBIN,DIRECT 0.2 mg/dL (0.0-0.4); BILIRUBIN,TOTAL 0.4 mg/dL (0.2-1.3); BLOOD UREA NITROGEN 14 mg/dL (7-20); CALCIUM 10.1 mg/dL (8.4-10.2); CARBON DIOXIDE 26 mmol/L (22-30); CHLORIDE 106 mmol/L (98-107); GLUCOSE 89 mg/dL (75-110); LIPASE 75.6 U/L (23-300); POTASSIUM 4.8 mmol/L (3.6-5.0); SODIUM 140.2 mmol/L (137-145)
--- NOTE | 2018-12-07 11:24 | RADIOLOGY REPORT (SQ) ---
EXAM DESCRIPTION: CT ABD/PELVIS WITH IV ONLY COMPLETED DATE/TIME: 12/07/2018 11:11 am REASON FOR STUDY: abd pain COMPARISON: 05/23/2018 TECHNIQUE: CT scan of the abdomen and pelvis performed using helical scanning technique with dynamic intravenous contrast injection. No oral contrast. Images reviewed with lung, soft tissue, and bone windows. Reconstructed coronal and sagittal MPR images reviewed. Delayed images for evaluation of the urinary system also acquired. All images stored on PACS. All CT scanners at this facility use dose modulation, iterative reconstruction, and/or weight based d osing when appropriate to reduce radiation dose to as low as reasonably achievable (ALARA). [facility]: Dose Right [facility]: CareDose [facility]: Dose Right [facility]: Teradose 4D [facility]: CEYX CONTRAST TYPE AND DOSE: contrast/concentration: Isovue 350.00 mg/ml; Total Contrast Delivered: 100.0 ml; Total Saline Delivered: 70.0 ml RENAL FUNCTION: GFR > 60. RADIATION DOSE: CT Rad equipment meets quality standard of care and radiation dose reduction techniq ues were employed. CTDIvol: 14.9 - 19.3 mGy. DLP: 1837 mGy-cm.. LIMITATIONS: None. FINDINGS: LOWER CHEST: No significant findings. No nodules or infiltrates. LIVER: Normal size. Fatty change. No masses. No dilated ducts. SPLEEN: Calcified splenic cyst. PANCREAS: No masses. No significant calcifications. No adjacent inflammation or peripancreatic fluid collections. Pancreatic duct not dilated. GALLBLADDER: No identified stones by CT criteria. No inflammatory changes to suggest cholecystitis. ADRENAL GLANDS: No significant masses or asymmetry. RIGHT KIDNEY AND URETER: No solid masses. No significant calcifications. No hydronephrosis or hyd roureter. LEFT KIDNEY AND URETER: No solid masses. No significant calcifications. No hydronephrosis or hydr oureter. AORTA AND VESSELS: No aneurysm. No dissection. Renal arteries, SMA, celiac without stenosis. RETROPERITONEUM: No retroperitoneal adenopathy, hemorrhage or masses. BOWEL AND PERITONEAL CAVITY: No masses or inflammatory changes. No free fluid or peritoneal masses. APPENDIX: Normal. PELVIS: No mass. No free fluid. Normal bladder. ABDOMINAL WALL: No masses. No hernias. BONES: Nothing acute. OTHER: No other significant finding. IMPRESSION: No acute findings. TECHNICAL DOCUMENTATION: JOB ID: [id number] Quality ID # [id number]: Final reports with documentation of one or more dose reduction techniques (e.g., Au tomated exposure control, adjustment of the mA and/or kV according to patient size, use of iterative reconstruction technique) 2010 [employer]- All Rights Reserved Reading location - IP/workstation name: [email or web address]
[2018-12-07] MEDS ORDERED: DICYCLOMINE HCL 20 MG TABLET PO ONE (12:16)
--- NOTE | 2018-12-07 12:27 | ER Document Report ---
ED General - General Chief Complaint: Abdominal Pain Stated Complaint: ABDOMINAL PAIN Time Seen by Provider: 12/07/18 09:08 Primary Care Provider: SUKUMAR ALEX MD [Primary Care Provider] - Follow up as needed TRAVEL OUTSIDE OF THE [place] IN LAST 30 DAYS: No - HPI Patient complains to provider of: Abdominal pain rectal bleeding Notes: Patient coming in with diffuse abdominal pain and rectal bleeding ongoing for the last 4 days. Patient states has a history of inflammatory bowel disease patient states this occurred after receiving radiation chemotherapy from breast cancer. Patient states cancer free for the last 4 years patient states his last 4 days bright red blood which is normal for her but as he does have hemorrhoids however she is more concerned she has some dark blood clots. Patient denies any lightheadedness dizziness fevers chills nausea vomiting. Patient denies any trauma to her abdomen. Upon my evaluation patient is rubbing her abdomen otherwise looks to be in no obvious distress. Patient states she follows with Dr. michelle Romo last colonoscopy greater than 2 years ago states there is ulcerations in her colon no previous diagnosis diagnosis of diverticulitis diverticulosis - Related Data Allergies/Adverse Reactions: codeine [Codeine] Allergy (Unknown, Verified 12/07/18 08:37) Penicillins Allergy (Unknown, Verified 12/07/18 08:37) Past Medical History - Social History Smoking Status: Former Smoker Chew tobacco use (# tins/day): No Frequency of alcohol use: Rare Drug Abuse: None Family History: None Patient has suicidal ideation: No Patient has homicidal ideation: No - Past Medical History Cardiac Medical History: Reports: Hx Hypertension Neurological Medical History: Reports: Hx Migraine Renal/ Medical History: Denies: Hx Peritoneal Dialysis Malignancy Medical History: Reports: Hx Breast Cancer - left Psychiatric Medical History: Reports: Hx Depression Past Surgical History: Reports: Hx Breast Surgery - L Lumpectomy, Hx Section, Hx Hysterectomy, Hx Oral Surgery - [place] tooth removal, Hx Orthopedic Surgery - Right hand, Hx Tonsillectomy - Immunizations Hx Diphtheria, Pertussis, Tetanus Vaccination: Yes Review of Systems - Review of Systems Constitutional: No symptoms reported EENT: No symptoms reported Cardiovascular: No symptoms reported Respiratory: No symptoms reported Gastrointestinal: Abdominal pain, Rectal bleeding Genitourinary: No symptoms reported Female Genitourinary: No symptoms reported Musculoskeletal: No symptoms reported Skin: No symptoms reported Hematologic/Lymphatic: No symptoms reported Neurological/Psychological: No symptoms reported -: Yes All other systems reviewed and negative Physical Exam - Vital signs Vitals: Temp Pulse Resp BP Pulse Ox 99.0 F 84 17 131/80 H 98 12/07/18 08:45 12/07/18 08:45 12/07/18 08:45 12/07/18 08:45 12/07/18 08:45 Interpretation: Normal - General General appearance: Appears well, Alert - HEENT Head: Normocephalic, Atraumatic Eyes: Normal Pupils: PERRL - Respiratory Respiratory status: No respiratory distress Chest status: Nontender Breath sounds: Normal Chest palpation: Normal - Cardiovascular Rhythm: Regular Heart sounds: Normal auscultation Murmur: No - Abdominal Inspection: Normal Distension: No distension Bowel sounds: Normal Tenderness: Nontender Organomegaly: No organomegaly - Back Back: Normal, Nontender - Extremities General upper extremity: Normal inspection, Nontender, Normal color, Normal ROM, Normal temperature General lower extremity: Normal inspection, Nontender, Normal color, Normal ROM, Normal temperature, Normal weight bearing. No: Gay's sign - Neurological Neuro grossly intact: Yes Cognition: Normal Orientation: AAOx4 [place] Coma Scale Eye Opening: Spontaneous Marisa Coma Scale Verbal: Oriented [place] Coma Scale Motor: Obeys Commands [place] Coma Scale Total: 15 Speech: Normal Motor strength normal: LUE, RUE, LLE, RLE Sensory: Normal - Psychological Associated symptoms: Normal affect, Normal mood - Skin Skin Temperature: Warm Skin Moisture: Dry Skin Color: Normal Course - Re-evaluation Re-evalutation: 12/07/18 13:34 Laboratory studies not show any acute pathology lactic acid negative no leukocytosis normal hemoglobin hematocrit. CT scan also was negative for any signs of acute diverticulitis colitis. On reevaluation patient is very upset at the current nursing staff I was in the room and was requesting that the mental nurse leave I explained to the patient briefly that her laboratory studies CT scan was otherwise negative. Did explain to the patient that a rectal exam was still needed for completion of workup patient is adamantly refusing a rectal exam at this time and is obviously upset. Explained to the patient that we will send her home with Bentyl Tylenol Motrin for pain control with nausea control with Zofran patient will be discharged home follow-up primary care physician return to ER symptoms worsen. The patient presents with abdominal pain without signs of peritonitis or other life-threatening or serious etiology. The patient appears stable for discharge and has been instructed to return immediately if the symptoms worsen in any way, or in 8-12hr if not improved for re-evaluation. The patient has been instructed to return if the symptoms worsen or change in any way. - Vital Signs Vital signs: Temp Pulse Resp BP Pulse Ox 98.7 F 90 16 148/100 H 100 12/07/18 12:43 12/07/18 12:43 12/07/18 12:43 12/07/18 12:43 12/07/18 12:43 - Laboratory Result Diagrams: 12/07/18 09:30 12/07/18 09:30 Discharge - Discharge Clinical Impression: Rectal bleeding Abdominal pain Qualifiers: Abdominal location: unspecified location Qualified Code(s): R10.9 - Unspecified abdominal pain Condition: Good Disposition: HOME, SELF-CARE Instructions: Abdominal Pain ([facility]), Rectal Bleeding, Unclear Cause ([facility]) Additional Instructions: Your evaluation today does not show a clear cause for the rectal bleeding. CAT scan is negative laboratory studies not show any signs of anemia or need for a transfusion. Would recommend following up with your GI specialist Dr. Wick taking Bentyl Tylenol Motrin for pain control Prescriptions: Dicyclomine HCl [Bentyl 20 mg Tablet] 20 mg PO QID #30 tablet Ondansetron [Zofran Odt 4 mg Tablet] 1 - 2 tab PO Q4H PRN #30 tab.rapdis PRN Reason: For Nausea/Vomiting Referrals: SUKUMAR ALEX MD [Primary Care Provider] - Follow up as needed
[2018-12-07 12:44] VITALS: BP 148/100
== END 2018-12-07 12:45 | disposition home or self-care (01) ==
LOC: ER 08:33
DX: K62.5 Hemorrhage of anus and rectum (principal); R10.9 Unspecified abdominal pain; Z87.891 Personal history of nicotine dependence; I10 Essential (primary) hypertension
CPT/HCPCS: 99284; 36415; 83690; 85025; 80053; 81001; 83605; 74177; J3490